=== PATIENT | female | born 1975 | race Native Hawaiian/Other Pacific Islander ===

== ENCOUNTER 2020-02-02 17:31 | Emergency (ER) | payer OTHER ==
[~2020-02-02] VITALS: Ht 157.5 cm; Wt 68.0 kg
[2020-02-02] MEDS ORDERED: WARF5TAB6 PO (18:37)
[2020-02-02] MEDS ORDERED: METO50TA27 PO (18:38)
[2020-02-02 18:56] VITALS: BP 148/89; TEMP 98.6
== END 2020-02-02 18:58 | disposition home or self-care (01) ==
LOC: ED 17:31
DX: S20.211A Contusion of right front wall of thorax, initial encounter (principal)
CPT/HCPCS: 36415; 93005; 99283

== ENCOUNTER 2021-10-26 09:32 | Emergency (ER) | payer OTHER ==
[~2021-10-26] VITALS: Ht 157.5 cm; Wt 72.6 kg
[~2021-10-26 09:32] MED LIST: METO50TA27 PO; WARF5TAB6 PO
[2021-10-26 11:10] LABS: PLATELET COUNT 302 K/uL (152-353)
[2021-10-26 12:11] LABS: POTASSIUM 3.9 mmol/L (3.6-5.2)
[2021-10-26 13:00] VITALS: BP 120/72; TEMP 98.1
== END 2021-10-26 13:00 | disposition home or self-care (01) ==
LOC: ED 09:33
PROVIDERS: Emergency Medicine
DX: I48.91 Unspecified atrial fibrillation (principal); I10 Essential (primary) hypertension; F17.210 Nicotine dependence, cigarettes, uncomplicated
CPT/HCPCS: 80048; 84484; 85027; 93005; 96372; 99284; J1650; J2405